=== PATIENT | male | born 1995 | race Caucasian/White ===

== ENCOUNTER 2024-08-02 19:31 | Emergency (ER) | payer MEDICAID, SELFPAY ==
--- NOTE | 2024-08-02 19:28 | ECG_ITS ---
APPROVED REPORT Exam: Resting ECG HR:83 bpm ECG Measurements Heart Rate 83 AXES MS 123 P 36 QRSd 100 QRS 46 QT 344 T 57 QTc 383 Conclusion SINUS RHYTHM POSSIBLE RIGHT VENTRICULAR CONDUCTION DELAY [RSR (QR) IN V1/V2] BORDERLINE ECG UNCONFIRMED REPORT Electronically signed by : DEISY REBOLLEDO, 08/02/2024 23:03:19
[2024-08-02 19:31] VITALS: BP 152/92; PULSE 84; RESP 20; TEMP 36.7; O2SAT 96; BMI 25875.3
--- NOTE | 2024-08-02 19:38 | PC.NURSE ---
Pt in sinus rythym per continuous heart monitor. Skin pink warm and dry REsp full and easy Speech clear and appropriate Lungs clear to posterior auscultation Pt states pain worse with cough. Painful to palpation of left chest.
[2024-08-02 19:43] VITALS: BMI 27.8
--- NOTE | 2024-08-02 19:44 | HMH.EDGENADL ---
Discharge Plan Disposition Patient Disposition: Home, Self-Care Condition: Good Prescriptions Prescriptions: New albuterol sulfate 90 mcg/actuation HFA aerosol inhaler 1 inh inhalation Q4H PRN (Reason: shortness of breath or wheezing) Qty: 8.5 0RF doxycycline hyclate 100 mg capsule 100 mg PO BID 10 Days Qty: 20 0RF prednisone 50 mg tablet 50 mg PO DAILY 5 Days Qty: 5 0RF shvaozbinizlsfu-trbhbvijf-PC [Bromfed DM] 2-30-10 mg/5 mL syrup 5 ml PO Q4H PRN (Reason: sinus symptoms) Qty: 118 0RF naproxen 500 mg tablet 500 mg PO BID Qty: 20 0RF Referrals Follow up/Referrals: Provider,Referral, MD [Primary Care Provider] - See instructions Activity Restrictions/Add. Instructions Additional Instructions/Restrictions: You were evaluated in the emergency department today. Please pecan picker your prescriptions at the pharmacy and take them as prescribed. Follow-up very closely with your primary care provider. Return to the emergency department for any new or worsening symptoms. Clinical Impressions Clinical Impression: Pleural effusion on right, Upper respiratory infection Stand Alone Forms Stand Alone Forms: Work/School Release Instructions Patient Instructions: DI for Viral Upper Respiratory Infection -- Adult, DI for Pleural Effusion Print Language Print Language: Latvian Discharge ED Provider: Yvonne Evans General Adult HPI <TARUN Yu - Last Filed: 08/02/24 22:21> General Chief complaint: Upper Respiratory Infection Stated complaint: cough chest pain Time Seen by Provider: 08/02/24 19:44 Mode of Arrival: Ambulatory Source of Information: Patient Limitations: No Limitations Description of Symptoms (Recalled from ER Triage Doc. 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 Patient states he has had 3-week of significant cough however over the last 24 hours he has had constant bilateral chest pain. It is worse when he coughs but present when he is not. He denies any fever chills hemoptysis hematochezia melena nausea vomiting diarrhea. 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 He is a smoker but has not been diagnosed with COPD formally. He is on no home medications. Related Data Previous Rx's ?Medication ?Instructions ?Recorded albuterol sulfate 90 mcg/actuation 1 inh inhalation Q4H PRN shortness 08/02/24 aerosol inhaler of breath or wheezing #8.5 grams cunnvlzdlzargsx-pvefkyiaonfhrcv-DY 5 ml PO Q4H PRN sinus symptoms 08/02/24 2 mg-30 mg-10 mg/5 mL oral syrup #118 mL (Bromfed DM) doxycycline hyclate 100 mg capsule 100 mg PO BID 10 days #20 caps 08/02/24 naproxen 500 mg tablet 500 mg PO BID #20 tabs 08/02/24 prednisone 50 mg tablet 50 mg PO DAILY 5 days #5 tabs 08/02/24 Allergies Allergy/AdvReac Type Severity Reaction Status Date / Time ibuprofen Allergy Severe Difficulty Verified 08/02/24 19:37 Breathing Penicillins Allergy Intermediate Hives Verified 08/02/24 19:37 PFS <TARUN Yu - Last Filed: 08/02/24 22:21> [facility] Disclaimer: The information contained in this section may have been updated after the patient was seen, as this information can be updated by other users. Social History (Updated 08/02/24 @ 22:21 by TARUN Yu) Smoking Status: Current every day smoker alcohol intake: never current occupational status: employed Travel in the last 8 weeks: None Have you lived/traveled outside [place] in past 30 days?: No Contact w/someone who lives/traveled outside US past 30 days?: No Exposure to someone with infectious disease in past 14 days?: No Do you have a fever (greater than 100.4 F or 38 C)?: No Have you tested positive for COVID-19: No Exposed to someone with COVID-19 in past 14 days?: No Do you have a sore throat?: No Do you have a cough?: Yes Do you have any weakness?: No Do you have any diarrhea?: No Are you experiencing any unusual bleeding?: No Do you have any muscle aches/pain?: No Do you have any abdominal pain?: No Are you experiencing loss of taste or smell?: No <TARUN Yu - Last Filed: 08/02/24 22:21> ROS Obtained: Yes Systems reviewed as appropriate & no additional complaints except as documented Physical Exam <TARUN Yu - Last Filed: 08/02/24 22:21> General General appearance: alert and in no apparent distress Respiratory Respiratory exam: Present normal lung sounds bilaterally Cardiovascular Cardiovascular exam: Present regular rate Neurological Exam Neurological exam: Present alert and oriented X3 Medical Decision Making <TARUN Yu - Last Filed: 08/02/24 22:21> Medical Records Medical records reviewed: Yes I reviewed the patient's medical records. Screening: Per USPSTF and CDC recommendations, given the prevalence of disease in our region, it is our hospital?s policy to screen for HIV and viral Hepatitis for all patients aged 18 and over and those with ongoing risk factors. Cole Inquiry Pt receiving controlled substance: No Vital Signs: 08/02/24 19:31 08/02/24 20:00 08/02/24 21:00 Temperature 98.1 F Temperature Source Oral Pulse Rate Pulse Rate [Right Brachial] 84 Respiratory Rate 20 23 Blood Pressure 149/75 H 155/91 H Blood Pressure [Right Arm] 152/92 H Blood Pressure Mean 112 Blood Pressure Mean [Right Arm] 112 Blood Pressure Source Blood Pressure Position 02 Sat by Pulse Oximetry 96 Oxygen Delivery Method Room Air 08/02/24 23:14 Temperature 97.9 F Temperature Source Oral Pulse Rate 77 Pulse Rate [Right Brachial] Respiratory Rate 16 Blood Pressure 138/72 Blood Pressure [Right Arm] Blood Pressure Mean Blood Pressure Mean [Right Arm] Blood Pressure Source Automatic Cuff Blood Pressure Position Supine 02 Sat by Pulse Oximetry Oxygen Delivery Method Room Air Lab Data Lab results reviewed: Yes I reviewed the patient's lab results. Lab Results 08/02/24 19:36: WBC 12.0 H, RBC 4.56 L, Hgb 13.3 L, Hct 38.6 L, MCV 84.6, MCH 29.2, MCHC 34.5, RDW 13.2, Plt Count 483 H, MPV 9.4, Neut % (Auto) 55.3, Lymph % (Auto) 30.3, Rincon % (Auto) 11.1 H, Eos % (Auto) 2.5, Baso % (Auto) 0.6, Neut # (Auto) 6.7, Lymph # (Auto) 3.7, Rincon # (Auto) 1.3 H, Eos # (Auto) 0.3, Baso # (Auto) 0.1, D-Dimer 1.09 H, Sodium 138, Potassium 3.6, Chloride 105, Carbon Dioxide 29, Anion Gap 7.6, BUN 15, Creatinine 0.90, Estimated Creat Clear 159, Estimated GFR 100, Est GFR ( Amer) 121, Glucose 112 H, Calcium 8.8, Magnesium 1.9, Total Bilirubin 0.5, AST 25, ALT 22, Alkaline Phosphatase 116, Troponin I < 0.01, NT-Pro-B Natriuret Pep < 20.0, Total Protein 6.2 L, Albumin 3.6, Globulin 2.6, Albumin/Globulin Ratio 1.4, Procalcitonin 0.072, SARS-CoV-2 (PCR) Not detected, Influenza Type A (PCR) Not detected, Influenza Type B (PCR) Not detected, RSV (PCR) Not detected, Rhinovirus (PCR) Not detected 08/02/24 19:46: VBG pH 7.41, VBG pCO2 39.0, VBG pO2 127.4 H, VBG HCO3 24.3, VBG Total CO2 25.5, VBG O2 Saturation 98.6 H, VBG Base Excess -0.3, VBG Lactic Acid 1.3 08/02/24 19:36 08/02/24 19:36 Orders (Tests/Meds): ED MEDICATIONS Discontinued Medications Generic Name Dose Route Start Last Admin Trade Name Freq PRN Reason Stop Dose Admin Acetaminophen 1,000 mg 08/02/24 19:44 08/02/24 20:00 Acetaminophen 500mg Tab PO 08/02/24 19:45 1,000 mg ONCE ONE Administration Albuterol/Ipratropium 3 ml 08/02/24 19:44 08/02/24 20:10 Ipratropium/Albuterol 3 Ml Neb IH 08/02/24 19:45 3 ml ONCE ONE Administration Belladonna Alkaloids 60 ml 08/02/24 19:44 08/02/24 20:00 Belladonna Alkaloids 60 Ml Ml PO 08/02/24 19:45 60 ml ONCE ONE Administration Dexamethasone Sodium Phosphate 10 mg 08/02/24 19:44 08/02/24 20:00 Dexamethasone 4mg/Ml 5ml Mdv IV 08/02/24 19:45 10 mg ONCE ONE Administration Iopamidol 70 ml 08/02/24 21:34 08/02/24 21:37 Iopamidol-370 (76%);100ml Bottle IV 08/02/24 21:35 70 ml ONCE ONE Administration Iopamidol 70 ml 08/02/24 21:36 Iopamidol-370 (76%);100ml Bottle IV 08/02/24 21:37 ONCE ONE Sodium Chloride 50 ml 08/02/24 21:34 08/02/24 21:37 0.9 % Sodium Chloride 50 Ml Vial IV 08/02/24 21:35 50 ml ONCE ONE Administration Sodium Chloride 10 ml 08/02/24 21:34 08/02/24 21:37 Sodium Chloride 0.9% 10ml Syr (Rad Only) IV 08/02/24 21:35 10 ml ONCE ONE Administration Sodium Chloride 10 ml 08/02/24 21:36 Sodium Chloride 0.9% 10ml Syr (Rad Only) IV 08/02/24 21:37 ONCE ONE Sodium Chloride 50 ml 08/02/24 21:36 0.9 % Sodium Chloride 50 Ml Vial IV 08/02/24 21:37 ONCE ONE ORDERS Category Date Time Status CT angio chest PE protocol Stat Cat Scan 08/02/24 20:32 Completed BNP [NT Pro Brain Natriuretic Pep.] Stat Lab 08/02/24 19:36 Completed CBC w/Auto Diff [Complete Blood Count Auto Diff] Stat Lab 08/02/24 19:36 Completed CMP [Comprehensive Metabolic Panel] Stat Lab 08/02/24 19:36 Completed D-Dimer Stat Lab 08/02/24 19:36 Completed Magnesium Stat Lab 08/02/24 19:36 Completed Mini Respiratory Panel Stat Lab 08/02/24 19:36 Completed Procalcitonin Stat Lab 08/02/24 19:36 Completed Trop I [Troponin I] Stat Lab 08/02/24 19:36 Completed VBG [Venous Blood Gas] Stat RT 08/02/24 19:46 Completed Medical Decision Narrative: In summary patient is a 29-year-old male who presents to the emergency department for evaluation of cough and chest pain. Patient is hemodynamically stable upon arrival, afebrile. Physical exam is remarkable for clear breath sounds to the bases without adventitious sounds however patient has a coarse barking cough that is nonproductive. Heart sounds are normal patient is normal sinus rhythm on the bedside monitor patient has normal abdominal exam with no tenderness no rebound or guarding or rigidity with normal bowel sounds.. Differential diagnosis includes bronchitis versus COPD exacerbation versus PE versus pneumonia etc. Initial workup will be conducted with hematologic labs and D-dimer initially mini respiratory panel.. Initial interventions include DuoNeb Decadron Toradol Tylenol. Initial workup reviewed by me shows his hematologic labs are nonactionable with exception of a positive D-dimer thus I have ordered a CT PE protocol. My informal interpretation of his CT PE protocol did not show any evidence of acute infiltrates prior to radiologist read and I do not see any definitive thrombus prior to the radiologist read.. Upon repeat evaluation patient reports subjective improvement after initial intervention. Given this we await CT read at the time of handoff to Dr. Evans at 22 hours. <Yvonne Evans, DO - Last Filed: 08/02/24 23:44> Vital Signs: 08/02/24 19:31 08/02/24 20:00 08/02/24 21:00 Temperature 98.1 F Temperature Source Oral Pulse Rate Pulse Rate [Right Brachial] 84 Respiratory Rate 20 23 Blood Pressure 149/75 H 155/91 H Blood Pressure [Right Arm] 152/92 H Blood Pressure Mean 112 Blood Pressure Mean [Right Arm] 112 Blood Pressure Source Blood Pressure Position 02 Sat by Pulse Oximetry 96 Oxygen Delivery Method Room Air 08/02/24 23:14 Temperature 97.9 F Temperature Source Oral Pulse Rate 77 Pulse Rate [Right Brachial] Respiratory Rate 16 Blood Pressure 138/72 Blood Pressure [Right Arm] Blood Pressure Mean Blood Pressure Mean [Right Arm] Blood Pressure Source Automatic Cuff Blood Pressure Position Supine 02 Sat by Pulse Oximetry Oxygen Delivery Method Room Air Lab Data Lab Results 08/02/24 19:36: WBC 12.0 H, RBC 4.56 L, Hgb 13.3 L, Hct 38.6 L, MCV 84.6, MCH 29.2, MCHC 34.5, RDW 13.2, Plt Count 483 H, MPV 9.4, Neut % (Auto) 55.3, Lymph % (Auto) 30.3, Rincon % (Auto) 11.1 H, Eos % (Auto) 2.5, Baso % (Auto) 0.6, Neut # (Auto) 6.7, Lymph # (Auto) 3.7, Rincon # (Auto) 1.3 H, Eos # (Auto) 0.3, Baso # (Auto) 0.1, D-Dimer 1.09 H, Sodium 138, Potassium 3.6, Chloride 105, Carbon Dioxide 29, Anion Gap 7.6, BUN 15, Creatinine 0.90, Estimated Creat Clear 159, Estimated GFR 100, Est GFR ( Amer) 121, Glucose 112 H, Calcium 8.8, Magnesium 1.9, Total Bilirubin 0.5, AST 25, ALT 22, Alkaline Phosphatase 116, Troponin I < 0.01, NT-Pro-B Natriuret Pep < 20.0, Total Protein 6.2 L, Albumin 3.6, Globulin 2.6, Albumin/Globulin Ratio 1.4, Procalcitonin 0.072, SARS-CoV-2 (PCR) Not detected, Influenza Type A (PCR) Not detected, Influenza Type B (PCR) Not detected, RSV (PCR) Not detected, Rhinovirus (PCR) Not detected 08/02/24 19:46: VBG pH 7.41, VBG pCO2 39.0, VBG pO2 127.4 H, VBG HCO3 24.3, VBG Total CO2 25.5, VBG O2 Saturation 98.6 H, VBG Base Excess -0.3, VBG Lactic Acid 1.3 Orders (Tests/Meds): ED MEDICATIONS Discontinued Medications Generic Name Dose Route Start Last Admin Trade Name Freq PRN Reason Stop Dose Admin Acetaminophen 1,000 mg 08/02/24 19:44 08/02/24 20:00 Acetaminophen 500mg Tab PO 08/02/24 19:45 1,000 mg ONCE ONE Administration Albuterol/Ipratropium 3 ml 08/02/24 19:44 08/02/24 20:10 Ipratropium/Albuterol 3 Ml Neb IH 08/02/24 19:45 3 ml ONCE ONE Administration Belladonna Alkaloids 60 ml 08/02/24 19:44 08/02/24 20:00 Belladonna Alkaloids 60 Ml Ml PO 08/02/24 19:45 60 ml ONCE ONE Administration Dexamethasone Sodium Phosphate 10 mg 08/02/24 19:44 08/02/24 20:00 Dexamethasone 4mg/Ml 5ml Mdv IV 08/02/24 19:45 10 mg ONCE ONE Administration Iopamidol 70 ml 08/02/24 21:34 08/02/24 21:37 Iopamidol-370 (76%);100ml Bottle IV 08/02/24 21:35 70 ml ONCE ONE Administration Iopamidol 70 ml 08/02/24 21:36 Iopamidol-370 (76%);100ml Bottle IV 08/02/24 21:37 ONCE ONE Sodium Chloride 50 ml 08/02/24 21:34 08/02/24 21:37 0.9 % Sodium Chloride 50 Ml Vial IV 08/02/24 21:35 50 ml ONCE ONE Administration Sodium Chloride 10 ml 08/02/24 21:34 08/02/24 21:37 Sodium Chloride 0.9% 10ml Syr (Rad Only) IV 08/02/24 21:35 10 ml ONCE ONE Administration Sodium Chloride 10 ml 08/02/24 21:36 Sodium Chloride 0.9% 10ml Syr (Rad Only) IV 08/02/24 21:37 ONCE ONE Sodium Chloride 50 ml 08/02/24 21:36 0.9 % Sodium Chloride 50 Ml Vial IV 08/02/24 21:37 ONCE ONE ORDERS Category Date Time Status CT angio chest PE protocol Stat Cat Scan 08/02/24 20:32 Completed BNP [NT Pro Brain Natriuretic Pep.] Stat Lab 08/02/24 19:36 Completed CBC w/Auto Diff [Complete Blood Count Auto Diff] Stat Lab 08/02/24 19:36 Completed CMP [Comprehensive Metabolic Panel] Stat Lab 08/02/24 19:36 Completed D-Dimer Stat Lab 08/02/24 19:36 Completed Magnesium Stat Lab 08/02/24 19:36 Completed Mini Respiratory Panel Stat Lab 08/02/24 19:36 Completed Procalcitonin Stat Lab 08/02/24 19:36 Completed Trop I [Troponin I] Stat Lab 08/02/24 19:36 Completed VBG [Venous Blood Gas] Stat RT 08/02/24 19:46 Completed ECG Data Tracing #1: I reviewed this ECG and interpreted as documented below: Normal sinus rhythm with a ventricular rate of 83 bpm. No acute STEMI. Possible right ventricular conduction delay. Normal intervals otherwise ECG initial impression date: 08/02/24 ECG initial impression time: 19:30 Medical Decision Narrative: In summary patient is a 29-year-old male who presents to the emergency department for evaluation of cough and chest pain. Patient is hemodynamically stable upon arrival, afebrile. Physical exam is remarkable for clear breath sounds to the bases without adventitious sounds however patient has a coarse barking cough that is nonproductive. Heart sounds are normal patient is normal sinus rhythm on the bedside monitor patient has normal abdominal exam with no tenderness no rebound or guarding or rigidity with normal bowel sounds.. Differential diagnosis includes bronchitis versus COPD exacerbation versus PE versus pneumonia etc. Initial workup will be conducted with hematologic labs and D-dimer initially mini respiratory panel.. Initial interventions include DuoNeb Decadron Toradol Tylenol. Initial workup reviewed by me shows his hematologic labs are nonactionable with exception of a positive D-dimer thus I have ordered a CT PE protocol. My informal interpretation of his CT PE protocol did not show any evidence of acute infiltrates prior to radiologist read and I do not see any definitive thrombus prior to the radiologist read.. Upon repeat evaluation patient reports subjective improvement after initial intervention. Given this we await CT read at the time of handoff to Dr. Evans at 22 hours. I was consulted by the OMI, and we discussed the complexity of the problems being addressed. I approved the treatment and management plan for this patient's care in the emergency department, thus performing a substantive portion of the medical decision making. Patient has small pleural effusion, likely infectious in this clinical setting. No blood clot or other concern. Given this, it is felt he is appropriate for discharge home with antibiotics. Instructions for close outpatient follow-up were given as well as strict return precautions. He was discharged after all questions were answered. Yvonne Evans, DO Critical Care <TAURN Yu - Last Filed: 08/02/24 22:21> Critical Care Time Critical Care Time: No
[2024-08-02 19:51] LABS: Coronavirus 19, PCR Not Detected (NotDetected); Human Rhinovirus Not Detected (NotDetected); Influenza A, PCR Not Detected (NotDetected); Influenza B, PCR Not Detected (NotDetected); Respiratory Syncytial Virus Not Detected (NotDetected)
[2024-08-02 20:00] VITALS: BP 149/75; RESP 23
[2024-08-02 20:00] LABS: Basophils # 0.1 K/mm3 (0-0.2); Basophils % 0.6 % (0.1-2.0); Eosinophils # 0.3 K/mm3 (0.0-0.4); Eosinophils % 2.5 % (0.1-12.0); Hematocrit 38.6 % (42.0-52.0); Hemoglobin 13.3 g/dL (14.1-18.0); Lymphocytes # 3.7 K/mm3 (0.7-4.5); Lymphocytes % 30.3 % (10-50); Mean Corpuscular HGB Conc 34.5 g/dL (31.8-35.4); Mean Corpuscular Hemoglobin 29.2 pg (27.0-31.2); Mean Corpuscular Volume 84.6 fl (80-94); Mean Platelet Volume 9.4 fl (7.4-10.4); Monocytes # 1.3 K/mm3 (0.1-1.0); Monocytes % 11.1 % (1.7-9.3); Neutrophils # 6.7 K/mm3 (1.8-7.8); Neutrophils % 55.3 % (37.0-80.0); Platelet Count 483 K/mm3 (142-424); Red Blood Count 4.56 M/mm3 (4.60-6.20); Red Cell Distribution Width 13.2 % (11.5-17.5)
[2024-08-02] MEDS: DEXAMETHASONE 4MG/ML 5ML MDV 10 MG IV (20:00)
[2024-08-02] MEDS: ACETAMINOPHEN 500MG TAB 1000 MG PO (20:00)
[2024-08-02] MEDS: BELLADONNA ALKALOIDS 60 ML ML PO (20:00)
[2024-08-02 20:08] LABS: Lactate Venous 1.3 mmol/L (0.4-2.0); VBG Base Excess -0.3 mmol/L (-2.4-2.3); VBG HCO3 24.3 mmol/L (23-30); VBG Oxygen Saturation 98.6 % (50-70); VBG PH 7.41 mmol/L (7.31-7.41); VBG PO2 127.4 mmol/L (28-40); VBG Total CO2 25.5 mmol/L (23-27)
[2024-08-02] MEDS: IPRATROPIUM/ALBUTEROL 3 ML NEB IH (20:10)
[2024-08-02 20:17] LABS: D-Dimer 1.09 ug/mL (0.0-0.5)
--- NOTE | 2024-08-02 20:32 | CT_ITS ---
PROCEDURE INFORMATION: Exam: CTA Chest With Contrast Exam date and time: 08/02/2024 9:35 PM Age: 29 years old Clinical indication: Cough; Additional info: 3 weeks of cough and chest pain TECHNIQUE: Imaging protocol: Computed tomographic angiography of the chest with contrast. Exam focused on the arteries. 3D rendering (Not supervised by radiologist): MIP and/or 3D reconstructed images were created by the technologist. Radiation optimization: All CT scans at this facility use at least one of these dose optimization techniques: automated exposure control; mA and/or kV adjustment per patient size (includes targeted exams where dose is matched to clinical indication); or iterative reconstruction. Contrast material: ISOVUE 370; Contrast volume: 70 ml; Contrast route: INTRAVENOUS (IV); COMPARISON: No relevant prior studies available. FINDINGS: Pulmonary arteries: Normal. No pulmonary emboli. Aorta: Unremarkable. No aortic aneurysm. No aortic dissection. Lungs: Small volume right pleural fluid. No pneumothorax. Pleural spaces: Mild dependent atelectasis in the lower lobes. Lungs are otherwise clear. Heart: Unremarkable. No cardiomegaly. No pericardial effusion. Lymph nodes: Unremarkable. No enlarged lymph nodes. Bones/joints: Unremarkable. No acute fracture. Soft tissues: Unremarkable. IMPRESSION: Small right pleural effusion. No significant infiltrate.
[2024-08-02 21:00] VITALS: BP 155/91
[2024-08-02 21:07] LABS: Alanine Aminotransferase 22 U/L (12-78); Albumin Level 3.6 g/dl (3.5-5.0); Albumin/Globulin Ratio 1.4 (1.1-1.8); Alkaline Phosphatase 116 U/L (38-126); Anion Gap 7.6 mEq/L (5-15); Aspartate Amino Transferase 25 U/L (17-59); Bilirubin,Total 0.5 mg/dl (0.2-1.3); Blood Urea Nitrogen 15 mg/dl (9-20); Calcium 8.8 mg/dl (8.4-10.2); Carbon Dioxide 29 mmol/L (22.0-30.0); Chloride 105 mmol/L (98-107); Creatinine Clearance Estimated 159 mL/min (50-200); Estimated Glomerular Filt Rate 100 ml/min (>60); GFR (African American) 121 ML/MIN (>60); Globulin 2.6 g/dL (1.3-3.2); Glucose 112 mg/dl (74-100); Magnesium 1.9 mg/dl (1.6-2.3); Potassium 3.6 mmoL/L (3.5-5.1); Sodium 138 mmol/L (136-145); Total Protein,Serum 6.2 g/dl (6.3-8.2)
[2024-08-02 21:19] LABS: NT Pro Brain Natriuretic Pep. < 20.0 pg/mL (0-125)
[2024-08-02 21:24] LABS: Procalcitonin 0.072 ng/mL (0.0-2.0); Troponin I < 0.01 ng/ml (0.00-0.034)
[2024-08-02] MEDS: SODIUM CHLORIDE 0.9% 10ML SYR (RAD ONLY) 10 ML IV (21:37)
[2024-08-02] MEDS: IOPAMIDOL-370 (76%);100ML BOTTLE 70 ML IV (21:37)
[2024-08-02] MEDS: 0.9 % SODIUM CHLORIDE 50 ML VIAL IV (21:37)
--- NOTE | 2024-08-02 21:42 | PC.NURSE ---
Pt back from CT scan
[2024-08-02 23:14] VITALS: BP 138/72; PULSE 77; RESP 16; TEMP 36.6; O2SAT 99
--- NOTE | 2024-08-02 23:17 | PC.NURSE ---
IV removed. Catheter tip intact. Bleeding controlled.
--- NOTE | 2024-08-02 23:17 | PC.NURSE ---
PT awake and alert Skin pink warm and dry REsp full and easy Speech clear and appropriate. Pt denies chest pain at this time
== END 2024-08-02 23:18 | disposition home or self-care (01) ==
PROVIDERS: Physician Assistant; Emergency Provider Emergency Medicine
DX: J90 Pleural effusion, not elsewhere classified (principal); J06.9 Acute upper respiratory infection, unspecified; R07.9 Chest pain, unspecified; R05.9 Cough, unspecified; Z72.0 Tobacco use
CPT/HCPCS: 71275; 80053; 82803; 83735; 83880; 84145; 84484; 85025; 85378; 87631; 93005; 96374; 99285; J1100; J7620; Q9967